=== PATIENT | female | born 1985 | race Caucasian/White ===

== ENCOUNTER 2016-10-11 12:47 | Emergency (ER) | payer MEDICARE, OTHER ==
--- NOTE | ~2016-10-11 | CR72 ---
[facility] A Service of [facility] RADIOLOGY TEXT RESULTS PATIENT: MADISON POPE LOCATION: SED : [birth year] UNIT #: [id number] AGE: [address]: KAYE STILL SEX: F ORDER DR: [id number] [place] [id number] E MR#: [id number] Acc #: [id number] NAME: MADISON POPE : 1985 SEX: F STUDY DATE/TIME: 10/11/2016 12:55 UNIT: SED ROOM: STUDY DESCRIPTION: CR Chest Single View Portable Attending Physician: Kaye Still Aprn Ordering Physician: Physician Non-Staff Primary Care Physician: Johnson Ruff M.D. MEDICAL IMAGING REPORT This report is preliminary unless electronic signature is present. EXAM Portable chest. HISTORY Chest pain for the past 3 days. COMPARISON 02/21/2016 TECHNIQUE Single AP view of the chest was obtained. FINDINGS A single AP portable view of the chest shows both lungs to be clear. The heart is normal in size. The mediastinal contour is normal. No significant bone abnormalities are seen. IMPRESSION Normal portable chest. Dictated by... Mao Acevedo M.D. THIS IS AN ELECTRONICALLY VERIFIED REPORT Mao Acevedo M.D. at 10/11/2016 6:02 PM RLF/rhina TD: 10/11/2016 14:38 JOB #: [id number] [facility] A Service of [facility] RADIOLOGY TEXT RESULTS PATIENT: MADISON POPE LOCATION: SED : [birth year] UNIT #: [id number] AGE: [address]: KAYE STILL SEX: F ORDER DR: MEDICAL IMAGING REPORT Page 1 of 1
[~2016-10-11 12:47] MED LIST: AFRIN15 M1; ALBUTEROL17 GM INH; ALDOMET250 MG; ALDOMET250 MG PO; AMOXICILLIN PO; ANIMAL SHAPES1 EAC2; ANXIETY MED; AUGMENTIN875 M1 PO; AUGMENTIN875 MG DOB; AURALGAN OTIC S10 M1 AD; BACTRIM DS TABL1 TA1 PO; BIRTH CONTROL PILL PO; BLOOD PRESSURE PO; CLARITIN10 M3 PO; CYMBALTA PO; DICLOFENAC PO; DIFLUCAN PO; FLEXERIL10 MG PO; IBUPROFEN800 MG PO; KEFLEX500 M2 PO; LAMISIL TOP; LISINOPRIL-HCTZ1 T19 PO; LORTAB 7.51 TAB PO; METHYLDOPA250 M1 PO; MOTRIN400 MG; MUCINEX1200 MG/BO PO; NEOMYC-POLYM-DEX5 ML AU; NUVARING V1 VAG.RING VAG; NYSTATIN15 GM OINT EXT; PHENERGAN25 M1 PO; PREDNISONE PO; PRENATAL1 TA1 PO; PROTONIX PO; ROBAXIN PO; SUDAFED30 M1 PO; ZANAFLEX4 M1 PO; ZITHROMAX PO; ZYRTEC10 M1 PO; ZYRTEC5 MG PO; [UNRECOGNIZED DRUG - REMARK]
[2016-10-11 13:11] LABS: BASOPHIL# 0.1 X10e3 (0-0.3); BASOPHIL% 0.8 % (0-2.5); EOSINOPHIL# 0.1 X10e3 (0-0.7); EOSINOPHIL% 0.8 % (0.0-7.0); HEMATOCRIT 41.7 % (35.0-45.0); HEMOGLOBIN 14.2 gm/dL (12.0-16.0); LYMPHOCYTE# 5.8 X10e3 (1.0-3.5); LYMPHOCYTE% 43.9 % (17.0-45.0); MEAN CELL VOLUME 87.6 FL (83-96); MEAN CORPUSCULAR HEMOGLOBIN 29.7 PG (28-34); MEAN CORPUSCULAR HGB CONC 33.9 g/dL (30-36); MEAN PLATELET VOLUME 8.2 FL (6.5-11.5); MONOCYTE# 0.9 X10e3 (0-1.0); MONOCYTE% 6.6 % (3.0-12.0); NEUTROPHIL# 6.4 X10e3 (1.5-7.1); NEUTROPHIL% 47.9 % (40-75); PLATELET COUNT 335 X10e3 (140-420); RED BLOOD COUNT 4.77 X10e (3.90-5.30); RED CELL DISTRIBUTION WIDTH 13.4 % (11.0-15.5); WHITE BLOOD COUNT 13.3 X10e3 (4.0-10.5)
[2016-10-11 13:12] LABS: DIFF IND NO
[2016-10-11 13:29] LABS: ALBUMIN SERUM 4.3 g/dL (3.5-5.0); BILIRUBIN, DIRECT 0.1 mg/dL (0.0-0.2); BILIRUBIN,INDIRECT 0.3 mg/dL (0.0-0.9); BILIRUBIN,TOTAL 0.4 mg/dL (0.2-2.0); BUN/CREATININE RATIO 13.33; CALCIUM SERUM 10.2 mg/dL (8.4-10.2); CREATININE SERUM 0.6 mg/dL (0.6-1.4); GLOM FILT RATE Estimated 123.2 mL/min (>60); POTASSIUM 3.6 mmol/L (3.5-5.1)
[2016-10-19 17:20] LABS: POC - CKMB <1.0 ng/mL (0.0-7.9); POC - MYOGLOBIN 37.6 ng/mL (0.0-169.0); POC - TROPONIN <0.05 ng/mL (<=0.05)
== END 2016-10-11 14:40 | disposition home or self-care (01) ==
LOC: SED 12:47
PROVIDERS: Nurse Practitioner Family
DX: R07.9 Chest pain, unspecified (principal); I10 Essential (primary) hypertension; J45.909 Unspecified asthma, uncomplicated; K21.9 Gastro-esophageal reflux disease without esophagitis; F17.210 Nicotine dependence, cigarettes, uncomplicated; Z88.2 Allergy status to sulfonamides; Z88.5 Allergy status to narcotic agent; Z88.1 Allergy status to other antibiotic agents; Z79.899 Other long term (current) drug therapy
CPT/HCPCS: 36415; 71010; 80048; 80076; 82553; 83874; 84484; 85025; 93005; 99284; J1885